=== PATIENT | female | born 1995 | race Caucasian/White ===

== ENCOUNTER 2016-10-19 10:52 | Emergency (ER) | payer OTHER ==
[2016-10-19 10:59] VITALS: BP 115/60
[2016-10-19] MEDS ORDERED: LIDOCAINE 1% 2 ML VIAL ONE (12:50)
[2016-10-19] MEDS ORDERED: TETANUS/DIPHTHERIA/PERTUSSIS 0.5 ML SYRINGE IM ONE ×2 (13:11→13:14)
--- NOTE | 2016-10-19 13:12 | ED Physician Documentation ---
PD HPI UPPER EXT INJURY - Stated complaint Stated Complaint: R HAND THUMB LAC - Chief complaint Chief Complaint: Laceration - History obtained from History obtained from: Patient, Family - History of Present Illness Location: Right, Hand (thumb) Type of injury: Laceration Where injury occurred: Home Timing - onset: Today Timing - duration: Hours (2) Timing - details: Abrupt onset Pain level max: 3 Pain level now: 2 Improved by: Rest Worsened by: Moving Associated symptoms: No: Weakness, Numbness, Tingling, Swelling Contributing factors: No: Anticoagulated Similar symptoms before: Has not had sx before Recently seen: Not recently seen - Additonal information Additional information: pt is right handed. Unsure of last Tetanus. PD PAST MEDICAL HISTORY - Past Surgical History Past Surgical History: No - Allergies Allergies/Adverse Reactions: Allergies Allergy/AdvReac Type Severity Reaction Status Date / Time No Known Drug Allergies Allergy Verified 10/19/16 10:56 - Social History Does the pt smoke?: No Smoking Status: Never smoker Does the pt drink ETOH?: No Does the pt have substance abuse?: No - Immunizations Immunizations are current?: Yes PD ED PE NORMAL - Vitals Vital signs reviewed: Yes - General General: Alert and oriented X 3, No acute distress - Derm Derm: Warm and dry - Neuro Neuro: Alert and oriented X 3 - Psych Psych: Normal mood, Normal affect PD ED PE EXPANDED - Extremities ANGELA UE/Hands Visual: 1 - laceration (2cm, linear, NVI. subcutaneous) Results - Vitals Vitals: Vital Signs - 24 hr 10/19/16 10:54 Temperature 36.0 C L Heart Rate 62 Respiratory 17 Rate Blood Pressure 115/60 O2 Saturation 100 Oxygen O2 Source Room air Procedures - Laceration (location) R thumb Length in cm: 2 Wound type: Linear, Superficial, Into subcut fat, Clean Neurovascular status: Sensory intact, Motor intact, Vascular intact Tendon involvement: Tendon intact Anesthesia: Lidocaine 1% Wound Preparation: Irrigated copiously NS Skin layer closure: Nylon, Size #-0 - enter number (4), Sutures - enter # (3) Other: Patient tolerated well, No complications, Neurovascular intact, Tetanus booster given (tdap) Complexity: Simple PD MEDICAL DECISION MAKING - ED course Complexity details: considered differential, d/w patient, d/w family ED course: Patient with a right thumb laceration. This was repaired. Tolerated well. Warnings of infection and instructions on wound care given at bedside. Also counseled on how to minimize scarring. Patient counseled regarding signs and symptoms for which I believe and urgent re-evaluation would be necessary. Patient with good understanding of and agreement to plan and is comfortable going home at this time This document was made in part using voice recognition software. While efforts are made to proofread this document, sound alike and grammatical errors may occur. Departure - Departure Disposition: 01 Home, Self Care Clinical Impression: Thumb laceration Qualifiers: Encounter type: initial encounter Laterality: right Qualified Code(s): S61.011A - Laceration without foreign body of right thumb without damage to nail , initial encounter Condition: Good Instructions: ED Laceration Hand Follow-Up: Chetan Islas DO [Primary Care Provider] - (in 10-14 days for suture removal) Comments: Follow-up with your doctor in 10-14 days for suture removal. Keep the wound clean. Return if you notice redness, swelling or discharge from the wound Discharge Date/Time: 10/19/16 13:22
[2016-10-19] MEDS ORDERED: IBUPROFEN 100 MG/5 ML UDC ONE (13:15)
== END 2016-10-19 13:22 | disposition home or self-care (01) ==
LOC: ED 10:52
DX: S61.011A Laceration without foreign body of right thumb without damage to nail, initial encounter (principal); W25.XXXA Contact with sharp glass, initial encounter; Y92.009 Unspecified place in unspecified non-institutional (private) residence as the place of occurrence of the external cause
CPT/HCPCS: 12001; 99282; 99283; A9270